=== PATIENT | male | born 1950 | race African-American/Black ===

== ENCOUNTER 2018-02-24 11:32 | Emergency (ER) | payer MEDICARE, MEDICAID ==
[~2018-02-24] VITALS: Ht 172.7 cm; Wt 86.0 kg
[2018-02-24 11:46] VITALS: BP 106/71
[2018-02-24] MEDS ORDERED: KETOROLAC 30MG/ML VIAL IM ONE (15:15)
[2018-02-24] MEDS ORDERED: HYDROCODONE/ACETAMINOPHEN 5/325MG TABLET PO ONE (15:15)
== END 2018-02-24 16:18 | disposition home or self-care (01) ==
LOC: ER 15:41
DX: M54.5 Low back pain (principal); G89.29 Other chronic pain; M79.661 Pain in right lower leg; R26.2 Difficulty in walking, not elsewhere classified; I10 Essential (primary) hypertension; F17.210 Nicotine dependence, cigarettes, uncomplicated; Z98.890 Other specified postprocedural states
CPT/HCPCS: 99283; J1885